=== PATIENT | female | born 1980 | race Two or more races ===

== ENCOUNTER 2023-07-29 16:56 | Emergency (ER) | payer BC ==
[~2023-07-29] VITALS: Ht 154.9 cm; Wt 57.2 kg
[2023-07-29] MEDS: ACETAMINOPHEN ES 500 MG TABLET PO ONE (17:40)
[2023-07-29] MEDS ORDERED: LIDOCAINE 5% (PATCH) 1 EA PATCH TP ONE (17:40)
[2023-07-29] MEDS ORDERED: MORPHINE SULFATE INJ 2 MG/ML DISP.SYRIN ONE (17:40)
[2023-07-29] MEDS ORDERED: ACETAMINOPHEN ES 500 MG TABLET ONE (17:41)
[2023-07-29] MEDS: MORPHINE SULFATE INJ 2 MG/ML DISP.SYRIN IM ONE (17:46)
[2023-07-29] MEDS: LIDOCAINE 5% (PATCH) 1 EA PATCH TP ONE (17:48)
[2023-07-29] MEDS ORDERED: ACET-2605 PO (18:36)
[2023-07-29] MEDS ORDERED: TRAM50TA2 PO (18:36)
[2023-07-29 18:42] VITALS: BP 135/81; TEMP 98.3; O2SAT 99
== END 2023-07-29 18:42 | disposition home or self-care (01) ==
LOC: ER 17:10
DX: M54.50 Low back pain, unspecified (principal)
CPT/HCPCS: 99283; 96372; J2270